=== PATIENT | male | born 1975 | race Caucasian/White ===

== ENCOUNTER 2025-04-24 19:35 | Inpatient (IN) | payer MEDICARE, SELFPAY ==
[2025-04-24 16:06] VITALS: BMI 38.4
[2025-04-24] MEDS: NSS 1000 IV ×3 (16:18→22:07)
[2025-04-24] MEDS: ATIVAN 1 MG IV ×2 (16:27→19:25)
--- NOTE | 2025-04-24 16:27 | ED.GENMED ---
History of Present Illness
General
Chief Complaint: Seizure
Source: patient
Exam Limitations: none
Time Seen by Provider: 04/24/25 16:23
History of Present Illness
History of Present Illness:
50-year-old male who had a reported seizure witnessed by his neighbor at the [facility] [place]. Patient has a history of daily alcohol use, typically beer, and states his last use was sometime last night. He states he was in bed all day and does not
remember the events leading up to his presentation here. He denies drug use, or any physical complaints. He is noted to be diaphoretic and tachycardic here. He denies chest pain, palpitations, headache, neck pain, numbness, abdominal pain,
nausea, vomiting, or other complaints.
Past History
Past History
ED Past Medical History: None
ED Past Surgical History: None
Social History
Tobacco: Smoker
Alcohol: Daily
Drug: None
Living: homeless
Phy Exam
Physical Exam
Physical Exam:
GENERAL: Alert , in no apparent distress
EYE: pupils equal and reactive, no nystagmus, no photophobia, EOMI
NECK: Supple, no significant adenopathy.
ENT: o/p clr except for tongue laceration noted at the right side of the tongue with dried blood in mouth,, mm dry
CARDIAC: Regular rate and rhythm, tachycardic.
LUNGS: Clear breath sounds bilaterally, no acute respiratory distress, no wheezes/rales/rhonchi
ABDOMEN: Soft, without focal tenderness, no r/g, no cvat
NEUROLOGICAL: Alert and oriented, no focal neuro deficits, no resting tremor
SKIN: Warm and diaphoretic, skin intact. There are scattered bruises noted throughout extremities without focal tenderness.
MUSCULOSKELETAL: No edema, well perfused.
PSYCH: Normal and appropriate interaction.
Scores
Withdrawal Assessment of Alcohol
Nausea and Vomiting: No nausea and no vomiting
Tactile Disturbances: None
Tremor: Not visible, but can be felt fingertip to fingertip
Auditory Disturbances: Not present
Paroxysmal Sweats: Beads of sweat obvious on forehead
Visual Disturbances: Not present
Anxiety: Mild anxiety
Headache, Fullness in Head: Moderate
Agitation: Normal activity
Orientation and clouding of sensorium: Oriented and can do serial additions
Total CIWA Score: 9
Alcohol Withdrawal Medication Recommendation: Equal to MSAS Score 5-7. Lorazepam 1mg IV or PO NOW & re-assess q2hrs
Course
Orders/Labs/Results
Orders:
Orders
04/24/25
Comprehensive Metabolic Panel Urgent
Magnesium Urgent
Phos [Phosphorus] Urgent
04/24/25 Dinner
Regular
At Your Request: Full Participation
Does patient need a safe tray?: No
04/24/25 16:10
Electrocardiogram (*1) Urgent
Reason for Study: Other
Other Reason for Exam: Potential overdose
EKG- Treatment ONCE
IV Insert/Care/Rem.- Treatment PRN
04/24/25 16:11
Alcohol Urgent
Basic Metabolic Panel Urgent
Complete Blood Count/With Diff Urgent
04/24/25 16:18
0.9% Sodium Chloride 1000 ml [Nss] 1,000 ml IV BOLUS
04/24/25 16:25
Lorazepam [Ativan] 2 mg .ROUTE .STK-MED ONE
04/24/25 16:26
CT Head W/o Iv Contrast Urgent
Comment:
Reason For Exam: sz
Lorazepam [Ativan] 1 mg IV NOW STA
Thiamine Injection 200 mg IV NOW STA
04/24/25 16:27
Lorazepam [Ativan] 1 mg IV NOW STA
04/24/25 16:30
Add On- LAB Urgent
Tests Added?: magnesium, phosphorus
04/24/25 16:33
FOLic ACID [Folvite] 1 mg 0.9% Sodium Chloride 50 ml [Nss] 50 ml IV NOW
04/24/25 18:21
Urine Drug Abuse Screen Urgent
Date Specimen was Collected: 04/24/25
Time Specimen was Collected: 18:19
04/24/25 18:32
Acetaminophen [Tylenol] 650 mg .ROUTE .STK-MED ONE
04/24/25 18:34
Acetaminophen [Tylenol] 650 mg PO NOW STA
04/24/25 18:56
0.9% Sodium Chloride 1000 ml [Nss] 1,000 ml IV BOLUS
Lorazepam [Ativan] 1 mg IV NOW STA
04/24/25 19:17
Admit/Transfer Patient As Directed
Co-Sign Provider:
Level of Care: Inpatient admission
Assign to:: Telemetry
Physician / Group: Karen
Diagnosis: alcohol withdrawal seizure
Reason for Telemetry: Other
Other Reason for Telemetry: seizure
Date to Stop Telemetry: 04/26/25
Time to Stop Telemetry: 11:00
Reason for Hospitalization: alcohol withdrawal seizure
Expected length of stay greater than two midnights?: Yes
ELOS- Estimated Length of Stay in days: 2
I certify the patient meets the requirements for IP care: Yes
PRN Pain Medication Management As Directed
May give lesser potent ordered pain med per pt: Yes
preference::
Protocol:: Medication orders for pain may be administered in a
manner that supports deferring to patient preference
when the pt is:
- Requesting an ordered lesser potent pain medication.
Least to most potent pain medications are defined
as: acetaminophen < NSAID < tramadol < opioids
(morphine, oxycodone, hydromorphone).
- Requesting a lesser dose of the same medication IF
ORDERED.
- Requesting a less intrusive route of administration
if both routes are prescribed by the provider (PO <
IV).
04/24/25 21:46
0.9% Sodium Chloride 1000 ml [Nss] 1,000 ml IV 125 mls/hr
0.9% Sodium Chloride [Nss (Preservative Free)] See Protocol IV PRN PRN
Acetaminophen [Tylenol] 650 mg PO Q6HPRN PRN
Lorazepam [Ativan] 1 mg IV Q1HPRN PRN
Lorazepam [Ativan] 1 mg PO Q2HPRN PRN
Lorazepam [Ativan] 2 mg IV Q1HPRN PRN
Ondansetron Injectable [Zofran] 4 mg IV Q6HPRN PRN
04/24/25 21:46
Case Management Consult Once
Case Management Consult: Other
Comment: Substance abuse counseling
DIETARY IP CONSULT Routine
Reason for Consult: Nutrition support, possible refeeding guidelines
MSAS SCORE As Directed
MSAS Score 0-4: Repeat MSAS every 2 hours until 0-4 for three consecutive assessments, then every 4 hours x 48
hours.
MSAS Score 5-7: For MILD withdrawl symptoms. Repeat MSAS and RASS every 2 hours
MSAS Score 8-11: For MODERATE withdrawal symptoms. Repeat MSAS and RASS every 1 hour. Consider ICU or IMU
level of care.
MSAS Score > 11: For SEVERE withdrawal symptoms. Repeat MSAS and RASS every 1 hour. Notify provider, consider
ICU level of care.
MSAS Additional Instructions: If no improvement or no decrease in score from severe to moderate within 12
hours, consult psychiatry
MSAS Notify Provider: Notify provider if patient requires more than 10 mg of Lorazepam in eight hour period.
DX Deep Vein Thrombosis Video Routine
04/24/25 21:56
Phenobarbital Sodium [Phenobarbital] 260 mg 0.9% Sodium Chloride 100 ml [Nss] 100 ml IV NOW
04/24/25 22:39
Osmolality, Random Urine Routine
Date Specimen was Collected: 04/24/25
Time Specimen was Collected: 22:34
Urinalysis Routine
Date Specimen was Collected: 04/24/25
Time Specimen was Collected: 22:34
Urine Sodium Routine
Date Specimen was Collected: 04/24/25
Time Specimen was Collected: 22:34
04/24/25 23:55
BMP [Basic Metabolic Panel] Routine
04/25/25 00:00
Thiamine Injection 200 mg IV Q8
04/25/25 08:00
FOLic ACID [Folvite] 1 mg PO DAILY
FOLic ACID [Folvite] 1 mg 0.9% Sodium Chloride 50 ml [Nss] 50 ml IV DAILYPRN
Phenobarbital Sodium [Phenobarbital] 97.5 mg IV TID
04/25/25 08:09
Magnesium IN AM
PTT IN AM
Phosphorus IN AM
Prothrombin Time IN AM
04/25/25 18:00
Enoxaparin Sodium [Lovenox] 40 mg SC QPM
04/26/25 11:00
DC Protocol for Telemetry ONCE
04/27/25 08:00
Phenobarbital [Luminal] 64.8 mg PO TID
04/27/25 20:00
Thiamine HCl [Vitamin B1] 100 mg PO BID
04/29/25 08:00
Phenobarbital [Luminal] 32.4 mg PO TID
Abnormal Lab Results
04/24/25 04/24/25
16:11 18:21
MCV 94.2 H fL
(80.0-94.0)
MCH 31.1 H pg
(27.0-31.0)
Abs Immat Gran (auto) 0.1 H 10^3/uL
(0-0.05)
Absolute Monos (auto) 0.7 H 10^3/uL
(0.1-0.6)
Immature Gran % 0.7 H %
(0-0.5)
Sodium 132 L mmol/L
(135-145)
Carbon Dioxide 5 L* mmol/L
(22-30)
BUN 8 L mg/dl
(9-20)
Glucose 196 H mg/dl
(70-99)
Ur Tricyclics Screen Positive H
(Negative)
U Marijuana (THC) Screen Positive H
(Negative)
04/24/25 16:11
04/24/25 16:11
Vital Signs
Initial and Last Documented VS:
Initial Vital Signs
Temp Pulse Resp Pulse Ox
98.3 F 146 20 94
04/24/25 16:08 04/24/25 16:08 04/24/25 16:08 04/24/25 16:08
Last Documented Vital Signs
Temp Pulse Resp BP Pulse Ox
98.7 F 107 18 131/104 97
04/26/25 08:06 04/26/25 08:06 04/26/25 08:06 04/26/25 08:06 04/26/25 08:06
*Pulse Oximetry
SaO2: 94
Oxygen Mode of Delivery: Room air
Patient hypoxic: no
*Critical Care Note
Total Time (30-74mins, 75-104mins- exclusive of procedures): 32
Update Note
Update Note:
Patient presents to the Emergency Department with __reported seizure
Number and Complexity of Problems Addressed at the Encounter
� Chronic conditions affecting care:
� Acute Exacerbation and/or Progression of Chronic Illness:
� Differential Diagnosis includes: But not limited to alcohol withdrawal, drug withdrawal, seizure disorder, electrolyte disturbance, dehydration, etc. etc.
Amount and/or Complexity of Data to be Reviewed and Analyzed
� I performed an independent evaluation of and my interpretation is:
EKG: Read by me, sinus tachycardia, normal axis, no acute ischemia
CT: Read by radiology NAD
Xrays:
Laboratory Studies: Patient initially had a very abnormal bicarb however upon repeat assessment mild acidosis noted, none anion gap, mild hyperglycemia, new hyponatremia
Other:uds + thc, tca
� Review of other/old records reveals:
� Clinical information was obtained by an independent historian:
� Prescriptions/Medications Considered but not given:
� Further testing considered but not performed:
Risk of Complications and/or Morbidity or Mortality of Patient Management
� Social determinants of health affecting care:
� Discussion with other providers (PCP, Hospitalists, Consultants, etc):
� Escalation of care including admission/observation vs risk of discharge considered: 6:57 PM repeat assessment patient still tachycardic here to 110, minimal sweats, slightly restless, complaining of headache. Also noted to
have new hyponatremia which is unlikely to have contributed to his seizure however may be part of a beer P[place] jude syndrome for him. Discussed with hospitalist will admit.
ED Attending Note
-
Portions of this chart may have been created with voice recognition software.� Occasional wrong word or��sound alike� substitutions may have occurred due to the inherent limitations of voice recognition software.
Discharge Plan
Departure
Patient Disposition: Admit
Date of Disposition: 04/24/25
Time of Disposition: 18:58
Admit to: Telemetry
Presentation/result/management discussed w/ accepting MD/DO: Hospitalist
Condition: Fair
Discharge Problem:
Seizure
Interventions
Interventions:
*General Assessment Last Done: 04/24/25 19:42
*Neglect/Abuse Screening Last Done: 04/24/25 18:10
*ED COVID-19 Vaccine History Last Done: 04/24/25 22:07
*ED Influenza Vaccine History Last Done: 04/24/25 19:42
[facility] Risk Assessment Tool Last Done: 04/24/25 18:12
*Risk Screen - Suicide (C-SSRS) Last Done: 04/24/25 18:10
*Nursing Disposition Last Done: 04/24/25 22:04
ED- Cardiac Assessment Last Done: 04/24/25 18:10
ED- Neurological Assessment Last Done: 04/24/25 18:10
ED- Pulmonary Assessment Last Done: 04/24/25 18:10
Discharge Date and Time
Discharge Date/Time: 04/24/25 22:05
[2025-04-24 16:30] LABS: Hematocrit 47.3 % (39.0-52.0); Hemoglobin 15.6 g/dL (13.0-18.0); Mean Corp Hgb Conc. 33.0 g/dL (33.0-37.0); Mean Corpuscular Volume 94.2 fL (80.0-94.0); Nucleated Red Blood Cells % 0 % (-); Platelet Count 141 10^3/uL (130-400); Red Cell Dist. Width 13.3 % (11.5-14.5)
[2025-04-24] MEDS: THIAMINE INJECTION 200 MG IV ×2 (16:35→23:00)
[2025-04-24 16:52] LABS: Blood Urea Nitrogen 8 mg/dl (9-20); Calcium 9.6 mg/dl (8.4-10.2); Carbon Dioxide 5 mmol/L (22-30); Chloride 99 mmol/L (98-107); Estimated Creatinine Clearance 85 ml/min; Glucose 196 mg/dl (70-99); Sodium 132 mmol/L (135-145); eGFR > 60.00
[2025-04-24] MEDS: FOLVITE 50.2 MG IV (16:56)
[2025-04-24 17:00] VITALS: BP 125/79
[2025-04-24 17:44] LABS: AST (SGOT) 35 U/L (17-59); Albumin 3.9 g/dl (3.5-5.0); Alkaline Phosphatase 82 U/L (38-126); Blood Urea Nitrogen 8 mg/dl (9-20); Calcium 8.8 mg/dl (8.4-10.2); Carbon Dioxide 19 mmol/L (22-30); Chloride 101 mmol/L (98-107); Estimated Creatinine Clearance 85 ml/min; Glucose 182 mg/dl (70-99); Magnesium 2.1 mg/dl (1.6-2.3); Potassium 4.4 mmol/L (3.5-5.1); Sodium 130 mmol/L (135-145); Total Protein 6.5 g/dl (6.3-8.2); eGFR > 60.00
[2025-04-24 17:51] LABS: ALT (SGPT) 51 U/L (0-50)
[2025-04-24] MEDS: TYLENOL 650 MG PO (18:34)
--- NOTE | 2025-04-24 19:09 | HPS.HSE ---
Family Physician
-
Family Physician: * NONE
Chief Complaint
-
Withdrawal seizure
History of Present Illness
Patient is a 50-year-old male with past medical history significant for alcohol dependence without a prior history of withdrawal seizure episode about 3 years ago who presents to the emergency department following a witnessed seizure episode.
Patient reported that he last had alcohol drink on Friday morning. He was trying to help his friend stop drinking so he was able to stop. Patient reported by Friday he was feeling sick. He had abdominal discomfort and he also was feeling short
of breath and felt like he could not breathe. He only had a small amounts of water and ice tea.
He said that on Friday he himself witnessed himself shaking. He had tongue biting. He did not have loss of bladder or bowel continence. He said it lasted for about 3 minutes and EMS was called.
He said this episode felt similar to prior episode in 2022 when he also stopped drinking for about 3 days and then developed a seizure. Denies any other episodes of seizures. Denies any other episodes of or withdrawal. Patient also smokes and
uses marijuana but denies any other drug use. He has no head trauma.
In the emergency department he was afebrile, blood pressure was 125/80 with a pulse rate of 116 and oxygen saturation of 92% on room air. CT of the head was unremarkable. ECG shows sinus tachycardia at 144 regionally.
CBC was unremarkable. Electrolytes notable for a sodium of 130, bicarb of 19 otherwise unremarkable. BUN and creatinine were normal. Glucose was normal. UA was notable for cannabinoid and tricyclic's. Alcohol level was negative. LFTs were
unremarkable.
Medical History
Past Medical History
Past Medical History: Reports Other (alcohol dependence)
Past Surgical History: Reports None
Social History
Tobacco: Smoker (Three-quarter pack per day)
Alcohol: Daily (Reports drinking 15 bottles of beer daily since 2007)
Drug: Marijuana
Personal: Single
Living: With Roomate
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
Family History
Family History: Not pertinent
Allergies / Home Medications
Allergies reflects when Allergies were last updated in [facility].
Home Medications with original date entered in [facility]
Allergy/Medication List:
Allergies
Allergy/AdvReac Type Severity Reaction Status Date / Time
No Known Allergies Allergy Unverified 11/23/12 11:01
Home Medications
No current medications
If medication reconciliation has not been performed, why?: Other (Patient states he is not currently on any medications)
Review of Systems
-
Constitutional: Reports No Symptoms
EENT: Reports No Symptoms
Respiratory: Reports No Symptoms
Cardiac: Reports No Symptoms
Abdomen/GI: Reports No Symptoms
: Reports No Symptoms
Musculoskeletal: Reports No Symptoms
Skin: Reports No Symptoms
Neurological: Reports No Symptoms
Endocrine: Reports No Symptoms
Hematologic/Lymphatic: Reports No Symptoms
Psych: Reports No Symptoms
Physical Exam
Vital Signs
Vital Signs
Temp Pulse Resp BP Pulse Ox
98.3 F 116 24 125/79 91
04/24/25 16:08 04/24/25 17:30 04/24/25 17:00 04/24/25 17:00 04/24/25 17:30
Physical Exam
General: Well Developed, Well Nourished and No Apparent Distress
HEENT: NormoCephalic, Moist mucous membranes, Atraumatic and Other (Lateral left tongue erythema consistent with tongue bite)
Respiratory: Clear
Cardiac: S1/S2 and Regular Rhythm; No Murmur or Rub
GI: Soft, Non Tender, Non Distended and Normal Bowel Sounds; No Organomegaly
Rectal: Deferred by Provider
Musculoskeletal: No Clubbing, No Cyanosis and No Edema
Skin: No Rash
Neuro: AO x 3 and Nonfocal/grossly intact
Psych: Calm
Laboratory Results
-
04/24/25 16:11
04/24/25 Unknown
Laboratory Results
Total Bilirubin 0.9 mg/dl (0.2-1.3) 04/24/25 Unknown
AST 35 U/L (17-59) 04/24/25 Unknown
ALT 51 U/L (0-50) H 04/24/25 Unknown
Alkaline Phosphatase 82 U/L (38-126) 04/24/25 Unknown
Data Reviewed
-
CT Scan: Report Reviewed by me
Medical Tests (Nuc Med, Echo, EKG etc): Image Personally Visualized and interpreted
Lab Data: Labs Reviewed by me
Old Records: Reviewed
Impression/Plan
-
IMPRESSION:
50-year-old with past medical history significant for alcohol dependence with drinks about 15 bottles of beer every day, had a last drink on Friday morning about 60 hours ago and developed abdominal symptoms yesterday with nausea and intolerance of
p.o. although he was drinking only small amounts of liquids and ice tea, developed a seizure episode with tongue biting today lasting about 3 minutes and brought to the emergency department. In the emergency department he was afebrile
hemodynamically stable, his labs are notable for negative EtOH but positive urine cannabis test. His sodium was 130 BUN and creatinine were normal CBC was normal. LFTs were normal. ECG showed sinus tachycardia CT of the head was unremarkable.
Picture consistent with alcohol withdrawal seizure. Reports a prior episode of withdrawal seizures about 3 years ago.
PLAN:
Alcohol withdrawal seizure - 60 hours post last etoh drink, 15 bottles of beer daily. Prior withdrawal seizure per patient in setting of self directed cessation of etoh. PAWS is high. UDS neg for benzos. + cannabis.
- admit to telemetry
- will start etoh withdrawal protocol with phenobarbital taper
- MSAS protocol
- IV fluids, thiamine, folate
- declined referral for inpatient rehab
- case management
Hyponatremia - ETOH and liquid diet last 2 days and possibly seizure induced SIADH
- IV fluids for now
- repeat Na in 6 hours
- check urine osm and urine sodium
- liberal diet for now
DVT PPX - lovenox sq
Code status - Full Code
[2025-04-24 20:46] VITALS: BP 143/109
[2025-04-24 21:00] VITALS: BP 153/102
[2025-04-24 21:55] VITALS: BMI 26.8
[2025-04-24] MEDS: PHENOBARBITAL 104 MG IV (22:18)
--- NOTE | 2025-04-24 22:25 | PTCARENOTE ---
Pt arrived onto floor via stretcher. Pt AAOx3 and able to ambulate into room with minimal assistance. Pt with no complaints of pain or SOB at this time. Pt oriented to room and call keenan; will continue to monitor.
[2025-04-24 22:54] LABS: Urine Character Clear (Clear)
[2025-04-24 23:04] VITALS: BP 181/116
[2025-04-24 23:50] LABS: Urine Red Blood Cell 0-2 /HPF (0-2); Urine Squamous Cell 0-2 /LPF (Few)
[2025-04-25] VITALS (11 sets, daily range): BP systolic 150–187; BP diastolic 104–124
[2025-04-25 00:57] LABS: Blood Urea Nitrogen 9 mg/dl (9-20); Calcium 8.6 mg/dl (8.4-10.2); Carbon Dioxide 24 mmol/L (22-30); Chloride 101 mmol/L (98-107); Estimated Creatinine Clearance 111 ml/min; Glucose 97 mg/dl (70-99); Potassium 4.0 mmol/L (3.5-5.1); Sodium 132 mmol/L (135-145); eGFR > 60.00
[2025-04-25] MEDS: ATIVAN 1 MG PO (03:15)
[2025-04-25] MEDS: CATAPRES 0.1 MG PO (04:53)
[2025-04-25] MEDS: TRANDATE 10 MG IV (06:30)
[2025-04-25] MEDS: FOLVITE 1 MG PO (08:04)
[2025-04-25] MEDS: THIAMINE INJECTION 200 MG IV ×3 (08:05→23:45)
[2025-04-25] MEDS: PHENOBARBITAL 97.5 MG IV ×3 (08:05→21:01)
[2025-04-25] MEDS: APRESOLINE 10 MG IV (08:24)
[2025-04-25 09:01] LABS: INR 1.09; PT 14.2 Sec (11.4-14.6)
[2025-04-25 09:02] LABS: APTT 28.2 Sec (23.4-35.0)
[2025-04-25 09:44] LABS: Magnesium 1.8 mg/dl (1.6-2.3)
[2025-04-25] MEDS: ATIVAN 1 MG IV (10:29)
--- NOTE | 2025-04-25 12:32 | W.PN.HOSP.TC ---
Today's Communication/Plan
-
upgrade to IMU for alcohol withdrawal
Cont alcohol withdrawal protocol
Neuro CS
Assessment / Plan
Assessment / Plan
HPI: 50-year-old with past medical history significant for alcohol dependence with drinks about 15 bottles of beer every day (last drink was 3 days [employer]), p/w nausea and intolerance of p.o, and had a witnessed seizure episode with tongue biting that
lasted for about 3 minutes. He did not have loss of bladder or bowel continence.
He said this episode felt similar to prior episode in 2022 when he also stopped drinking for about 3 days and then developed a seizure. Denies any other episodes of seizures. Denies any other episodes of or withdrawal.
Patient also smokes and uses marijuana but denies any other drug use.
In the emergency department, he was afebrile and hemodynamically stable.
A/P:
# Alcohol withdrawal seizure
# Alcohol abuse (15 bottles of beer daily)
# Prior withdrawal seizure per patient in setting of self directed cessation of etoh.
UDS neg for benzos. + cannabis and + tricyclic
Alcohol level negative
Cont etoh withdrawal protocol with phenobarbital taper
MSAS protocol
IV fluids, thiamine, folate
Neuro CS for seizure
declined referral for inpatient rehab
case management for [facility] consult
# HTN likely related to alcohol withdrawal
Cont IV hydralazine PRN
# Mild Hyponatremia
s/p IVF
Monitor
DVT PPX - lovenox sq
Code status - Full Code
Anticipated Discharge: 24 - 48 hours
Subjective/Interval History
-
Date of Service: April 25, 2025
Objective Data
-
Labs:
Laboratory Results
04/25/25 04/25/25
00:30 08:09
PT 14.2
INR 1.09
APTT 28.2
Sodium 132 L
Potassium 4.0
Chloride 101
Carbon Dioxide 24
BUN 9
Creatinine 0.7
Glucose 97
Calcium 8.6
Vital Signs:
Vital Signs
Temp Pulse Resp BP Pulse Ox
36.8 C 108 20 163/104 98
04/25/25 11:00 04/25/25 11:00 04/25/25 11:00 04/25/25 11:00 04/25/25 11:00
I&O
04/24/25 04/25/25 04/26/25
06:59 06:59 06:59
Intake Total 1250 / 1250
Output Total 800 / 800
Balance 450 / 450
--- NOTE | 2025-04-25 14:02 | CON.NEURO ---
Addendum entered and electronically signed by Vik Barlow MD 04/25/25 19:59:
I saw and examined the patient today along with the nurse practitioner Laina Wiley, and I agree with her assessment and management plan. Given below is my addendum.
Patient is a 50-year-old male with past medical history significant for alcohol dependence with a prior history of withdrawal seizure episode about 3 years ago who presented to [facility] on 04/24/2025 following a witnessed seizure episode. The patient's
seizure that occurred prior to current admission also appears to be secondary to alcohol withdrawal as the patient did not have a drink for 3 days prior to his seizure. The plan is to continue the phenobarbital taper as per alcohol withdrawal
protocol.
The plan is not to start the patient on any antiepileptic medication and also not to do any further imaging study, as the seizure appears to have happened in the setting of alcohol withdrawal.
Continue folic acid and thiamine along with IV fluids.
The patient says that he is unable to quit alcohol and therefore a rehab for alcohol dependence needs to be considered.
The patient neurologic examination is normal.
Seizure precautions including no driving for 6 months and reporting to [facility] as per [place] law.
Will sign off. Please call if you have any question.
Original Note:
Neuro Assessment/Plan
Assessment
Patient is a 50-year-old male with past medical history significant for alcohol dependence with a prior history of withdrawal seizure episode about 3 years ago who presented to [facility] on 04/24/2025 following a witnessed seizure episode.
Head CT 04/24/2025: No acute intracranial abnormality.
Plan
Impression: seizure episode in a patient with alcohol dependence most likely related to alcohol withdrawal having not had a drink for 3 days
-continue phenobarbital taper per alcohol withdrawal protocol
-no need for antiepileptic medications or further imaging considering seizure in the setting of alcohol withdrawal
-continue IV fluids, thiamine and folate
-MSAS protocol
-consider rehab for alcohol dependence
All questions encouraged and answered, plan of care discussed with Dr. Barlow and patient
Consultation
Order
Date of Consultation: 04/25/25
Requesting Provider: hospitalist/ Dr. Ying Phelps
Reason for Consult: seizure
Subjective/Objective
Subjective Data
Date of Service: April 25, 2025
Patient is a 50-year-old male with past medical history significant for alcohol dependence with a prior history of withdrawal seizure episode about 3 years ago who presented to [facility] on 04/24/2025 following a witnessed seizure episode. He admits to
drinking about 15 bottles of beer daily. Patient reported that he last had an alcoholic drink on Friday morning. He said that on Friday he himself witnessed himself shaking. He had tongue biting. He did not have loss of bladder or bowel
continence. He said it lasted for about 3 minutes and EMS was called. He said this episode felt similar to prior episode in 2022 when he also stopped drinking for about 3 days and then developed a seizure. Denies any other episodes of seizures.
Denies any other episodes of or withdrawal. Patient also smokes and uses marijuana but denies any other drug use. He has no head trauma.
In the ED he was afebrile, blood pressure was 125/80 with a pulse rate of 116 and oxygen saturation of 92% on room air. CT of the head was unremarkable. ECG shows sinus tachycardia at 144 regionally. CBC was unremarkable. Electrolytes notable for
a sodium of 130, bicarb of 19 otherwise unremarkable. BUN and creatinine were normal. Glucose was normal. UA was notable for cannabinoid and tricyclic's. Alcohol level was negative. LFTs were unremarkable.
Objective Data
Vital Signs
Temp Pulse Resp BP Pulse Ox
98.2 F 108 20 163/104 98
04/25/25 11:00 04/25/25 11:00 04/25/25 11:00 04/25/25 11:00 04/25/25 11:00
Lab Results
04/24/25 16:11
04/25/25 00:30
PT 14.2 Sec (11.4-14.6) 04/25/25 08:09
INR 1.09 04/25/25 08:09
APTT 28.2 Sec (23.4-35.0) 04/25/25 08:09
Sodium 132 mmol/L (135-145) L 04/25/25 00:30
Potassium 4.0 mmol/L (3.5-5.1) 04/25/25 00:30
BUN 9 mg/dl (9-20) 04/25/25 00:30
Glucose 97 mg/dl (70-99) 04/25/25 00:30
Calcium 8.6 mg/dl (8.4-10.2) 04/25/25 00:30
Phosphorus 3.0 mg/dl (2.5-4.5) 04/25/25 08:09
Ur Buprenorphine Negative (Negative) 04/24/25 18:21
Patient Allergies
No Known Allergies Allergy (Unverified 11/23/12 11:01)
Physical Exam
-
General: Appears Stated Age
HEENT: Poor Dentition
Neck: Full Range of Motion
Respiratory: No Dyspnea
Cardiac: No JVD
GI: Non-distended
Skin: Unremarkable
Extremities: No Clubbing and No Edema
Psych: Negative Intact Judgement/Insight
Extended Neurological Exam
Attention Span & Concentration: Awake, Alert and Interactive
Memory: Vague and Incomplete Historian
Speech: Quality Unremarkable, Quantity Unremarkable and Rate of Production Unremarkable
Cranial Nerve VII: Facial Symmetry: Normal Facial Symmetry
Cranial Nerve VIII: Hearing: Unremarkable Hearing to Normal Conversational Volume
Muscle Strength, Overall: Full Throughout
Pronator Drift: No Drift in Upper Extremities and No Drift in Lower Extremities
Coordination: Dphikm-forj-eqxemu Testing Unremarkable and Szen-Zhbc-Ykfd movements intact bilaterally
Data Reviewed
-
CT Head: Report Reviewed and Image Reviewed
Medical Test Reports: Report Reviewed
Labs: Report Reviewed
Reviewed with: Physician and Patient
Old Records: Summarized
Medications
-
Active Medications
Generic Name Dose Route Start Last Admin
Trade Name Freq PRN Reason Stop Dose Admin
Acetaminophen 650 mg 04/24/25 21:46
Acetaminophen 325 Mg Tablet PO 05/22/25 21:45
Q6HPRN PRN
mild pain/ fever>100.5F
Enoxaparin Sodium 40 mg 04/25/25 18:00
Enoxaparin Sodium 40 Mg/0.4 Ml Syringe SC 05/23/25 17:59
QPM JASWINDER
Folic Acid 1 mg 04/25/25 08:00 04/25/25 08:04
Folic Acid 1 Mg Tablet PO 05/23/25 07:59 1 mg
DAILY JASWINDER Administration
Hydralazine HCl 10 mg 04/25/25 08:14 04/25/25 08:24
Hydralazine 20 Mg/Ml Vial IV 05/23/25 08:13 10 mg
Q4HPRN PRN Administration
SBP > 180
Folic Acid 1 mg/ Sodium 50.2 mls @ 200.8 mls/hr 04/25/25 08:00
Chloride IV 05/23/25 07:59
DAILYPRN PRN
if NPO
Lorazepam 1 mg 04/24/25 21:46 04/25/25 03:15
Lorazepam 1 Mg Tablet PO 05/22/25 21:45 1 mg
Q2HPRN PRN Administration
MSAS 5-7
Lorazepam 1 mg 04/24/25 21:46 04/25/25 10:29
Lorazepam 2 Mg/Ml Vial IV 05/22/25 21:45 1 mg
Q1HPRN PRN Administration
MSAS 8-11
Lorazepam 2 mg 04/24/25 21:46
Lorazepam 2 Mg/Ml Vial IV 05/22/25 21:45
Q1HPRN PRN
MSAS > 11
Ondansetron HCl 4 mg 04/24/25 21:46
Ondansetron 4 Mg/2 Ml Vial IV 05/22/25 21:45
Q6HPRN PRN
NAUSEA/VOMITING
Phenobarbital Sodium 64.8 mg 04/27/25 08:00
Phenobarbital 32.4 Mg Tablet PO 04/28/25 22:01
TID JASWINDER
Phenobarbital Sodium 32.4 mg 04/29/25 08:00
Phenobarbital 32.4 Mg Tablet PO 04/30/25 22:01
TID JASWINDER
Phenobarbital Sodium 97.5 mg 04/25/25 08:00 04/25/25 08:05
Phenobarbital (65 Mg/Ml) 1 Ml Vial IV 04/26/25 22:01 97.5 mg
TID JASWINDER Administration
Sodium Chloride 0 ml 04/24/25 21:46
Sodium Chloride 0.9% (Preservative Free) 10 Ml Vial IV 05/22/25 21:45
PRN PRN
To dilute IV Ativan
Protocol
Sodium Chloride 0 flush 04/24/25 22:00
Sodium Chloride 0.9% (Flush) Syringe IV 05/22/25 21:59
PER PROTOCOL JASWINDER
Thiamine HCl 200 mg 04/25/25 00:00 04/25/25 08:05
Thiamine (100 Mg/Ml) 2 Ml Vial IV 04/27/25 16:01 200 mg
Q8 JASWINDER Administration
Thiamine HCl 100 mg 04/27/25 20:00
Thiamine 100 Mg Tablet PO 05/25/25 19:59
BID JASWINDER
Home Medications
�Medication �Instructions �Recorded
'Blood Pressure Medicine' PO DAILY Blood Pressure 11/23/12
Past History
Past History
ED Past Medical History: None
ED Past Surgical History: None
Family/Social History
Tobacco: Smoker
Alcohol: Daily
Drug: None
Living: homeless
--- NOTE | 2025-04-25 15:25 | CM ---
CM reviewed chart, patient seen bedside, consult received for [facility].
Patient for upgrade to IMU.
Patient resides with a family friend, is independent with ADLs/IADLs, denies DME, VN.
Patient does not have a PCP.
Pharmacy [facility] [place].
Discussed [facility] resources with patient, declining at the time.
CM will continue to follow for all d.c needs.
Plan; declining [facility], wants to leave hospital
--- NOTE | 2025-04-25 17:48 | PTCARENOTE ---
Pt ordered transfer to IMU this AM due to hypertension and increasing MSAS scores. By the time patient was done with psychiatrist and available to be transferred, his MSAS and BP were much more under control (see chart). Double checked with Dr. Phelps
who said it was okay for patient to stay on floor but was out of hospital and unable to cancel order at this time. Residential Sales Consultant aware.
[2025-04-25] MEDS: NICODERM TRANSDERMAL 21 MG TRANSDERM (19:56)
--- NOTE | 2025-04-25 22:24 | CS.PSYCHR ---
Consult Summary - Psychiatry
-
pt seen in consultaton concerning capacity to leave ama
50 yo man brought to ED from residential hotel due to reported seizure. Has had serious problem with alcohol for most of adult life, with 5 DUIs. States he is not drinking as much as he has previously, had stopped 2 days prior to this episode. Pt
doubts it was really a seizure but admits he had bitten inside of mouth and tongue.
I explained to patient reason for capacity assessment, he agreed to interview. During assessment it became clear that he understood well what was worng, what options for treatment he had, and what the risks and benefits might be. As I explained my
reasoning for wanting him to stay, it became clear that his main concern was being home for [place]. He always helps brother with preparing the ham, and he did not want to miss out on the family dinner with his many nieces and nephews. He agreed
to stay another night for us to talk in the morning, but wanted assurances that he would be leaving by [place].
Pt states he grew up with an older brother and older sister, father and mother both with alcohol problems Father committed suicide by hanging when pt was 4, children sent to live with various relatives for about a year due to mother's drinking.
Was not a good student but was good at sports in (swimming and cross country.) Has worked many jobs, had many relationships.
Became father at age 14, unable to raise him but has somewhat of a connection now (lives in [facility] Has had two longer relationships; one ended when she gave to a baby that was not his (unknown to him until paternity test he was encouraged
to ask for) and another 8 year relatsionship with a woman who also drank heavily-- two years ago. Stil grieves this loss.
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 Living with long-time best friend, sharing expenses in [place].
Some estrangement from family--had come back to [facility] [place] after a time in [place], went to mother's house hoping to stay, but brother was there, did not want him to stay there 9had been paying all the bills for home.) Mother took brother's side.
5 DUIs, 'maybe I'll get my license back some day'
On exam pt lying in bed, slightly tremulous ('that's nothing') Pleasant, cooperative, Inquisitive about my life (children, work) answers questions appropirately. Oriented x 3 and to situation, downplays seriousness of alcohol use; compares self to
roommate who drinks hard liquor (pt drinks only beers) as well as not nearly as much as earlier days.
Impression: alsohol use disorder , PTSD
Rec: Pt has capcity to refuse care at this point
Would continue to treat as you are with phenobarb taper, would also add gabapentin 400 tid to help with withdrawal as he is likely to leave prematurely. Not interested in rehab, willing to try outpatient
[2025-04-26 08:06] VITALS: BP 131/104
[2025-04-26] MEDS: THIAMINE INJECTION 200 MG IV (08:57)
[2025-04-26] MEDS: PHENOBARBITAL 97.5 MG IV (08:58)
[2025-04-26] MEDS: NICODERM TRANSDERMAL 21 MG TRANSDERM (09:01)
[2025-04-26] MEDS: FOLVITE 1 MG PO (09:01)
[2025-04-26 09:10] LABS: Blood Urea Nitrogen 8 mg/dl (9-20); Calcium 9.6 mg/dl (8.4-10.2); Carbon Dioxide 25 mmol/L (22-30); Chloride 98 mmol/L (98-107); Estimated Creatinine Clearance 97 ml/min; Glucose 103 mg/dl (70-99); Magnesium 1.9 mg/dl (1.6-2.3); Potassium 4.4 mmol/L (3.5-5.1); Sodium 132 mmol/L (135-145); eGFR > 60.00
--- NOTE | 2025-04-26 10:46 | W.PN.HOSP.TC ---
Today's Communication/Plan
-
see A/P
Assessment / Plan
Assessment / Plan
HPI: 50-year-old with past medical history significant for alcohol dependence with drinks about 15 bottles of beer every day (last drink was 3 days [employer]), p/w nausea and intolerance of p.o, and had a witnessed seizure episode with tongue biting that
lasted for about 3 minutes. He did not have loss of bladder or bowel continence.
He said this episode felt similar to prior episode in 2022 when he also stopped drinking for about 3 days and then developed a seizure. Denies any other episodes of seizures. Denies any other episodes of or withdrawal.
Patient also smokes and uses marijuana but denies any other drug use.
In the emergency department, he was afebrile and hemodynamically stable.
A/P:
# Alcohol withdrawal seizure
# Alcohol abuse (15 bottles of beer daily)
# Prior withdrawal seizure per patient in setting of self directed cessation of etoh.
UDS neg for benzos. + cannabis and + tricyclic
Alcohol level negative
Cont etoh withdrawal protocol with phenobarbital taper / MSAS protocol
IV fluids, thiamine, folate
Appreciate Neuro input
Appreciate Psych input, per psych pt has capacity to refuse care at this point. d/w Dr Padilla, he recc gabapentin 300 mg TID for 1 week, then BID for 1 week for withdrawal- informed pt about S/E of gabapentin (drowsiness)
# HTN likely related to alcohol withdrawal
Cont IV hydralazine PRN
# Mild Hyponatremia
s/p IVF
Sodium level 132 today
DVT PPX - lovenox sq
Code status - Full Code
DW RN
DW Psych
Anticipated Discharge: Today
Subjective/Interval History
-
Date of Service: April 26, 2025
Objective Data
-
Labs:
Laboratory Results
04/26/25
08:05
Sodium 132 L
Potassium 4.4
Chloride 98
Carbon Dioxide 25
BUN 8 L
Creatinine 0.8
Glucose 103 H
Calcium 9.6
Vital Signs:
Vital Signs
Temp Pulse Resp BP Pulse Ox
37.1 C 107 18 131/104 97
04/26/25 08:06 04/26/25 08:06 04/26/25 08:06 04/26/25 08:06 04/26/25 08:06
I&O
04/25/25 04/26/25 04/27/25
06:59 06:59 06:59
Intake Total 1250 / 1250 1500 / 1500
Output Total 800 / 800
Balance 450 / 450 1500 / 1500
Review of Systems
-
History Source: Patient
All other systems: Reviewed and negative
Physical Exam
-
General: Well Developed, Well Nourished, No Apparent Distress, Comfortable and Conversant; Negative Respiratory Distress
HEENT: Normocephalic, Atraumatic, Nose Appears Normal and Ears Appear Normal; Negative Oxygen
Respiratory: Clear to Auscultation and Non Labored Respirations; Negative Accessory Resp Muscle Use
Cardiac: Regular Rhythm, S1/S2 and Tachycardic
GI: Soft, Nontender, Nondistended and Normal Bowel Sounds
Skin: Warm and Dry
Neuro: Awake, Alert, Oriented and AO x 3
Psych: Calm, Agitated and Intact Judgement/Insight
Data Reviewed
-
Labs: Labs Reviewed by me
--- NOTE | 2025-04-26 14:18 | W.DCSUMMARY ---
Discharge Summary
Discharge Data
Date of Admission: 04/24/25
Date of Discharge: 04/26/25
Total time spent discharging patient (in min): 40
-
Pending Results: No
Hospital Course
Principal Diagnosis:
Alcohol withdrawal seizure with alcohol abuse
Chronic Diagnoses:�
Alcohol use disorder
History of alcohol withdrawal seizure
Consultations:�
Neurology
Psychiatry
Procedures:�
None
Clinical course:�
This is a 50-year-old M with past medical history as stated above, who presented with nausea, poor p.o. intake and witnessed seizure.
He said this episode felt similar to prior episode in 2022 when he stopped drinking for about 3 days and then developed a seizure.
Problem 1:
Alcohol withdrawal seizure with alcohol abuse.
His UDS was negative for benzos, but positive for cannabis and tricyclic.
His Alcohol level was negative.
He was covered with alcohol withdrawal protocol with phenobarbital taper / MSAS protocol.
The patient wanted to leave AMA, and per psychiatry eval, he has capacity to leave AMA.
Dr Padilla (psychiatrist) recommended that the patient to take gabapentin 300 mg TID for 1 week, then BID for 1 week for withdrawal. A paper prescription was provided to the patient per his request.
As for the rest of his medical problems, they were stable during his hospital stay.
Discharge Plan
-
Patient Disposition: Against Medical Advice
Discharge Diagnosis/Procedures: Alcohol withdrawal with withdrawal seizure;
Alcohol use disorder
Condition: Fair
Diet: As tolerated
Activity: As tolerated
Driving Restrictions: No driving
Activity Restrictions/Additional Instructions:
Avoid drinking alcohol
Referrals:
NONE,* [Family Provider, Internal Medicine] - in less than 1 week
Prescriptions:
New
gabapentin 300 mg capsule
See Rx Instructions .ROUTE .COMPLEX Qty: 35 0RF
Rx Instructions:
300 mg orally three times a day for 1 week, then twice a day for 1 week
Discontinued
'Blood Pressure Medicine'
PO DAILY
Patient Comments:
'I haven't taken it in a long time.'
Discharge Orders:
Discharge Patient (As Directed); Ordered 04/26/25
Ordered By: Ying Phelps
Discharge Date and Time
Discharge Date/Time: 04/26/25 11:22
Print Language: GIBRALTARIAN
== END 2025-04-26 11:22 | disposition left against medical advice (07) | DRG 894 ==
LOC: 4 WEST ACU 19:35
PROVIDERS: ADMITTING PHYSICIAN Internal Medicine; ATTENDING PHYSICIAN Internal Medicine; CONSULT PHYSICIAN Psychiatry & Neurology Neurology; CONSULT PHYSICIAN Psychiatry & Neurology Psychiatry; EMERGENCY PHYSICIAN Emergency Medicine
DX: F10.239 Alcohol dependence with withdrawal, unspecified (principal); E87.1 Hypo-osmolality and hyponatremia; Z59.00 Homelessness unspecified; F17.200 Nicotine dependence, unspecified, uncomplicated; F43.10 Post-traumatic stress disorder, unspecified; Z53.29 Procedure and treatment not carried out because of patient's decision for other reasons; I10 Essential (primary) hypertension; Z79.899 Other long term (current) drug therapy
CPT/HCPCS: 70450; 80048; 80053; 80306; 81003; 81015; 82077; 83735; 83935; 84100; 84300; 85025; 85610; 85730; 93005; 96365; 96367; 96375; 96376; 99285; 99406